=== PATIENT | female | born 1940 | race Caucasian/White ===

== ENCOUNTER 2023-07-31 07:51 | Outpatient (CLI) | payer MEDICARE, OTHER | END 2023-07-31 07:52 | disposition home or self-care (01) | LOC: NM 07:51 | PROVIDERS: ATTEND Psychiatry & Neurology Neurology | DX: G20.C Parkinsonism, unspecified (principal) | CPT/HCPCS: 78803; A9584 ×2 ==

== ENCOUNTER 2023-08-06 07:45 | Outpatient (CLI) | payer MEDICARE, OTHER ==
[2023-08-06] MEDS ORDERED: Iopamidol 370 76% 100 ML VIAL ONE (10:26)
== END 2023-08-06 07:46 | disposition home or self-care (01) ==
LOC: CT 07:45
PROVIDERS: ATTEND Internal Medicine
DX: C50.919 Malignant neoplasm of unspecified site of unspecified female breast (principal); M54.50 Low back pain, unspecified; M47.816 Spondylosis without myelopathy or radiculopathy, lumbar region; M47.812 Spondylosis without myelopathy or radiculopathy, cervical region; E04.1 Nontoxic single thyroid nodule; M89.9 Disorder of bone, unspecified
CPT/HCPCS: 71260; 72126; 72129; 72132; 74177; 82565

== ENCOUNTER 2023-08-12 09:38 | Outpatient (CLI) | payer MEDICARE, OTHER | END 2023-08-12 09:39 | disposition home or self-care (01) | LOC: NM 09:38 | PROVIDERS: ATTEND Internal Medicine | DX: C50.919 Malignant neoplasm of unspecified site of unspecified female breast (principal) | CPT/HCPCS: 78306; A9503 ==

== ENCOUNTER 2023-08-26 10:45 | Outpatient (CLI) | payer MEDICARE, OTHER | END 2023-08-26 10:46 | disposition home or self-care (01) | LOC: MRI 10:45 | PROVIDERS: ATTEND Psychiatry & Neurology Neurology | DX: G20.C Parkinsonism, unspecified (principal); I67.89 Other cerebrovascular disease; R90.89 Other abnormal findings on diagnostic imaging of central nervous system | CPT/HCPCS: 70553 ==

== ENCOUNTER 2024-07-27 04:03 | Emergency (ER) | payer MEDICARE, OTHER ==
[2024-07-27] MEDS ORDERED: dilTIAZem 25 MG/5 ML VIAL ONE (04:13)
[2024-07-27] MEDS ORDERED: dilTIAZem 125 MG/25 ML SDV ONE (04:22)
[2024-07-27 04:46] LABS: #Basophils Less than 0.03 10x3/uL (0.0-0.2); %Basophils 0.2 % (0.0-1.0); %Eosinophils 1.7 % (0.0-10.0); %Lymphocytes 14.4 % (21.0-51.0); %Monocytes 7.7 % (0.0-10.0); %Neutrophils 75.5 % (42.0-75.0); Hematocrit 36.6 % (36.0-47.0); Hemoglobin 12.5 g/dL (12.0-16.0); Mean Corpuscular HGB CONC 34.2 g/dL (32.0-36.0); Mean Corpuscular Hemoglobin 31.9 pg (27.0-31.0); Mean Corpuscular Volume 93.4 fL (78.0-98.0); Mean Platelet Volume 9.3 fL (7.4-10.4); Platelet Count 199 10x3/uL (130-400); Red Blood Cell (RBC) Count 3.92 mill/uL (4.20-5.40)
[2024-07-27 05:01] LABS: ALT (SGPT) 12 U/L (Less than 34); AST (SGOT) 23 U/L (11-34); Albumin 3.9 g/dL (3.1-4.5); Alkaline Phosphatase 136 U/L (40-110); Anion Gap 17 mmol/L (10-20); BUN (Urea Nitrogen) 25 mg/dL (9.8-20.1); Bilirubin, Total 0.2 mg/dL (0.3-1.2); Calc. Creatinine Clearance 0 mL/min (70-130); Calcium 9.1 mg/dL (7.8-10.44); Carbon Dioxide 20 mmol/L (23-31); Chloride 107 mmol/L (98-107); Estimated GFR 30; Glucose 110 mg/dL (83-110); Potassium 4.4 mmol/L (3.5-5.1); Protein, Total 6.9 g/dL (5.8-8.1); Sodium 140 mmol/L (136-145)
[2024-07-27 05:04] LABS: Troponin I 0.021 ng/mL (< 0.028)
[2024-07-27] MEDS ORDERED: Digoxin 0.5 MG/2 ML AMP ONE (07:06)
[2024-07-27] MEDS ORDERED: Boostrix 0.5 ML (Tdap) VIAL (>/=7 yrs of age) ONE (09:58)
== END 2024-07-27 10:14 | disposition short-term general hospital (02) ==
LOC: ERS 04:03
DX: S02.69XA Fracture of mandible of other specified site, initial encounter for closed fracture (principal); I48.91 Unspecified atrial fibrillation; I25.10 Atherosclerotic heart disease of native coronary artery without angina pectoris; Z23 Encounter for immunization; R22.43 Localized swelling, mass and lump, lower limb, bilateral; Y93.89 Activity, other specified; W01.10XA Fall on same level from slipping, tripping and stumbling with subsequent striking against unspecified object, initial encounter
CPT/HCPCS: 70450; 70486; 71045; 72125; 73060; 73502; 73564; 73700; 83735; 84484; 90471; 90715; 93005; 96374; 96375; 99285; J1160; 36415; 80053; 84443; 85025